=== PATIENT | male | born 1965 | race Caucasian/White ===

== ENCOUNTER → 2017-09-26 | Outpatient (CLI) | payer MEDICARE, MEDICAID ==
[2016-10-20 08:25] VITALS: BMI 27.1
[~2017-09-26] MED LIST: ACET-1966 PO; ACET-2043 PO; ADAL40PE4 SQ; ALEN70TA2 PO; BACOUD TP; CALC-597 PO; CALC1TAB24 PO; CETY454C2 TP; CHOL500045 PO; CIPR3.5O4 OP; CITA-139 PO; CLOB15CR22 TP; Cefdinir PO; DIAZ-308 PO; DOXY-179 PO; ENOX40DI8 SC; FERR240T18 PO; FLUT16SP20 NS; FOLI-68 PO; GUAI-244 PO; HYDR25CA83 PO; HYDR28.415 TP; IBAN150T3 PO; IBUP400T13 PO; LOPE-84 PO; LORA-1456 PO; LORA-629 PO; LORA10CA3 PO; MAG-66 PO; MENT118G; METH-318 PO; METH2.5T43 PO; MULT1TAB64 PO; NAPR220T86 PO; OLAN5TAB25 PO; OMEP-125 PO; PIMT TP; SIMV10TA98 PO; SODI30SP6 NS; TAMS0.4C70 PO; [UNRECOGNIZED DRUG - CODE] MC
--- NOTE | 2017-09-26 18:00 | RADIOLOGY IMAGING REPORT ---
[place] [facility] [place] NAME: Jose D Moy : 1965 MR: [id number] V: [id number] EXAM DATE: ORDERING PHYSICIAN: ERIKA MICHAUD TECHNOLOGIST: Location: [facility] [place] Patient: Jose D Moy : 1965 Visit/Account:[id number] Date of Sevice: 09/26/2017 CHEST PA AND LAT INDICATION: Encounter for therapeutic drug monitoring COMPARISON: November 01, 2016 FINDINGS: The cardiac silhouette is normal in size. Convexity right thoracic scoliosis as before. No pneumothor ax. Clear lungs. No pleural fluid. Thoracic kyphosis noted on lateral view. No acute osseous abnormal ity. Chronic right fifth and sixth rib fracture deformities are either new or better visualized on cu rrent exam. IMPRESSION: 1. No acute finding. 2. Chronic right fifth and sixth rib fracture deformities are either new or better visualized on this exam. 3. Unchanged thoracic scoliosis.. Report Dictated By: Nael Babin MD at 09/26/2017 5:53 PM Report E-Signed By: Nael Babin MD at 09/26/2017 5:55 PM WSN:[id number]
== END ==
LOC: RAD 15:34
PROVIDERS: ATTEND Family Medicine
DX: Z51.81 Encounter for therapeutic drug level monitoring (principal); S22.41XA Multiple fractures of ribs, right side, initial encounter for closed fracture; M41.84 Other forms of scoliosis, thoracic region
CPT/HCPCS: 71046

== ENCOUNTER → 2017-11-23 | Outpatient (REF) | payer MEDICARE ==
[2016-10-20 08:25] VITALS: BMI 27.1
== END ==
LOC: ZZLCC 17:03
PROVIDERS: ATTEND Family Medicine
DX: Z79.899 Other long term (current) drug therapy (principal)
CPT/HCPCS: 82040; 82247; 82248; 82310; 82374; 82435; 82565; 82947; 84075; 84100; 84132; 84155; 84295; 84450; 84460; 84520; 85027

== ENCOUNTER → 2017-12-25 | Outpatient (REF) | payer MEDICARE ==
[2016-10-20 08:25] VITALS: BMI 27.1
== END ==
LOC: ZZLCC 15:23
PROVIDERS: ATTEND Family Medicine
DX: Z51.81 Encounter for therapeutic drug level monitoring (principal)
CPT/HCPCS: 85027

== ENCOUNTER → 2018-01-06 | Outpatient (REF) | payer MEDICARE, MEDICAID ==
[2016-10-20 08:25] VITALS: BMI 27.1
[~2018-01-06] MED LIST changes: -CITA-139 PO; +CITA-145 PO
== END ==
LOC: ZZSENDIN 13:40
PROVIDERS: ATTEND Family Medicine
DX: D64.9 Anemia, unspecified (principal); Z79.899 Other long term (current) drug therapy
CPT/HCPCS: 83540; 83550

== ENCOUNTER → 2018-01-22 | Outpatient (REF) | payer MEDICARE, MEDICAID ==
[2016-10-20 08:25] VITALS: BMI 27.1
== END ==
LOC: ZZLCC 10:47
PROVIDERS: ATTEND Family Medicine
DX: M54.5 Low back pain (principal); R10.9 Unspecified abdominal pain; D64.9 Anemia, unspecified; D50.9 Iron deficiency anemia, unspecified
CPT/HCPCS: 81001

== ENCOUNTER → 2018-01-23 | Outpatient (REF) | payer MEDICARE, MEDICAID ==
[2016-10-20 08:25] VITALS: BMI 27.1
== END ==
LOC: ZZLCC 05:45
PROVIDERS: ATTEND Family Medicine
DX: R34 Anuria and oliguria (principal); M06.9 Rheumatoid arthritis, unspecified
CPT/HCPCS: 82040; 82247; 82248; 82310; 82374; 82435; 82565; 82947; 84075; 84100; 84132; 84155; 84295; 84450; 84460; 84520; 85027

== ENCOUNTER → 2018-02-22 | Outpatient (REF) | payer MEDICARE, MEDICAID ==
[2016-10-20 08:25] VITALS: BMI 27.1
== END ==
LOC: ZZLCC 10:54
PROVIDERS: ATTEND Family Medicine
DX: R62.7 Adult failure to thrive (principal); D50.9 Iron deficiency anemia, unspecified; R13.12 Dysphagia, oropharyngeal phase; B37.89 Other sites of candidiasis; E86.0 Dehydration; F33.9 Major depressive disorder, recurrent, unspecified; F39 Unspecified mood [affective] disorder; F79 Unspecified intellectual disabilities; J15.9 Unspecified bacterial pneumonia; M06.9 Rheumatoid arthritis, unspecified; M25.551 Pain in right hip; M25.552 Pain in left hip; M62.81 Muscle weakness (generalized); N39.0 Urinary tract infection, site not specified; R26.2 Difficulty in walking, not elsewhere classified; R33.9 Retention of urine, unspecified; R34 Anuria and oliguria; R41.841 Cognitive communication deficit; R53.1 Weakness; R60.0 Localized edema; Z96.641 Presence of right artificial hip joint
CPT/HCPCS: 85027

== ENCOUNTER → 2018-03-27 | Outpatient (REF) | payer MEDICARE, MEDICAID ==
[2016-10-20 08:25] VITALS: BMI 27.1
== END ==
LOC: ZZLCC 07:02
PROVIDERS: ATTEND Family Medicine
DX: Z79.899 Other long term (current) drug therapy (principal)
CPT/HCPCS: 82040; 82247; 82248; 82310; 82374; 82435; 82565; 82947; 84075; 84100; 84132; 84155; 84295; 84450; 84460; 84520; 85027

== ENCOUNTER → 2018-04-26 | Outpatient (REF) | payer MEDICARE, MEDICAID ==
[2016-10-20 08:25] VITALS: BMI 27.1
== END ==
LOC: ZZLCC 18:20
PROVIDERS: ATTEND Family Medicine
DX: Z79.899 Other long term (current) drug therapy (principal)
CPT/HCPCS: 85027

== ENCOUNTER → 2018-05-16 | Outpatient (REF) | payer MEDICARE, MEDICAID ==
[2016-10-20 08:25] VITALS: BMI 27.1
== END ==
LOC: ZZLCC 16:50
PROVIDERS: ATTEND Family Medicine
DX: K59.00 Constipation, unspecified (principal); R50.9 Fever, unspecified; R11.2 Nausea with vomiting, unspecified
CPT/HCPCS: 81001; 82040; 82247; 82310; 82374; 82435; 82565; 82947; 84075; 84132; 84155; 84295; 84450; 84460; 84520; 85027

== ENCOUNTER → 2018-06-24 | Outpatient (REF) | payer MEDICARE, MEDICAID ==
[2016-10-20 08:25] VITALS: BMI 27.1
== END ==
LOC: ZZLCC 10:58
PROVIDERS: ATTEND Family Medicine
DX: Z79.899 Other long term (current) drug therapy (principal)
CPT/HCPCS: 85027

== ENCOUNTER → 2018-07-02 | Outpatient (REF) | payer MEDICARE, MEDICAID ==
[2016-10-20 08:25] VITALS: BMI 27.1
== END ==
LOC: ZZLCC 20:45
PROVIDERS: ATTEND Family Medicine
DX: Z51.81 Encounter for therapeutic drug level monitoring (principal); Z79.899 Other long term (current) drug therapy
CPT/HCPCS: 85027

== ENCOUNTER → 2018-07-25 | Outpatient (REF) | payer MEDICARE, MEDICAID ==
[2016-10-20 08:25] VITALS: BMI 27.1
== END ==
LOC: ZZLCC 17:22
PROVIDERS: ATTEND Family Medicine
DX: Z51.81 Encounter for therapeutic drug level monitoring (principal); Z79.899 Other long term (current) drug therapy

== ENCOUNTER → 2018-07-26 | Outpatient (REF) | payer MEDICARE, MEDICAID ==
[2016-10-20 08:25] VITALS: BMI 27.1
== END ==
LOC: ZZLCC 07:24
PROVIDERS: ATTEND Family Medicine
DX: Z51.81 Encounter for therapeutic drug level monitoring (principal); Z79.899 Other long term (current) drug therapy
CPT/HCPCS: 82040; 82247; 82248; 84075; 84155; 84450; 84460; 85027

== ENCOUNTER → 2018-08-01 | Outpatient (REF) | payer MEDICARE, MEDICAID ==
[2016-10-20 08:25] VITALS: BMI 27.1
[2018-08-01 12:08] LABS: PLATELET COUNT, AUTOMATED 179 K/uL (150-450)
== END ==
LOC: ZZLCC 11:51
PROVIDERS: ATTEND Family Medicine
DX: D72.828 Other elevated white blood cell count (principal)
CPT/HCPCS: 85025; 86140

== ENCOUNTER → 2018-08-05 | Outpatient (REF) | payer MEDICARE, MEDICAID ==
[2016-10-20 08:25] VITALS: BMI 27.1
== END ==
LOC: ZZLCC 07:46
PROVIDERS: ATTEND Family Medicine
DX: Z51.81 Encounter for therapeutic drug level monitoring (principal); Z79.899 Other long term (current) drug therapy
CPT/HCPCS: 82040; 82247; 82248; 82310; 82374; 82435; 82565; 82947; 84075; 84100; 84132; 84155; 84295; 84450; 84460; 84520

== ENCOUNTER → 2018-08-25 | Outpatient (REF) | payer MEDICARE, MEDICAID ==
[2016-10-20 08:25] VITALS: BMI 27.1
== END ==
LOC: ZZLCC 07:44
PROVIDERS: ATTEND Family Medicine
DX: Z79.899 Other long term (current) drug therapy (principal)

== ENCOUNTER → 2018-09-26 | Outpatient (REF) | payer MEDICARE, MEDICAID ==
[2016-10-20 08:25] VITALS: BMI 27.1
[~2018-09-26] MED LIST changes: -ALEN70TA2 PO; +ALEN70TA46 PO
== END ==
LOC: ZZLCC 18:18
PROVIDERS: ATTEND Family Medicine
DX: D72.829 Elevated white blood cell count, unspecified (principal); Z79.899 Other long term (current) drug therapy

== ENCOUNTER → 2018-09-30 | Outpatient (REF) | payer MEDICARE, MEDICAID ==
[2016-10-20 08:25] VITALS: BMI 27.1
== END ==
LOC: ZZLCC 16:55
PROVIDERS: ATTEND Family Medicine
DX: D72.829 Elevated white blood cell count, unspecified (principal)
CPT/HCPCS: 82040; 82247; 82248; 82310; 82374; 82435; 82565; 82947; 84075; 84100; 84132; 84155; 84295; 84450; 84460; 84520; 85027

== ENCOUNTER → 2018-11-28 | Outpatient (REF) | payer MEDICARE, MEDICAID ==
[2016-10-20 08:25] VITALS: BMI 27.1
== END ==
LOC: ZZLCC 14:47
PROVIDERS: ATTEND Family Medicine
DX: D50.9 Iron deficiency anemia, unspecified (principal)
CPT/HCPCS: 83540

== ENCOUNTER → 2018-12-23 | Outpatient (REF) | payer MEDICARE, MEDICAID ==
[2016-10-20 08:25] VITALS: BMI 27.1
== END ==
LOC: ZZLCC 16:53
PROVIDERS: ATTEND Family Medicine
DX: Z79.899 Other long term (current) drug therapy (principal)
CPT/HCPCS: 82040; 82247; 82248; 82310; 82374; 82435; 82565; 82947; 84075; 84100; 84132; 84155; 84295; 84450; 84460; 84520; 85025; 85027

== ENCOUNTER → 2019-01-28 | Outpatient (REF) | payer MEDICARE, MEDICAID ==
[2016-10-20 08:25] VITALS: BMI 27.1
[~2019-01-28] MED LIST changes: -OMEP-125 PO; +OMEP-126 PO
== END ==
LOC: ZZLCC 13:03
PROVIDERS: ATTEND Family Medicine
DX: Z79.899 Other long term (current) drug therapy (principal)
CPT/HCPCS: 82040; 82247; 82248; 82310; 82374; 82435; 82565; 82947; 84075; 84100; 84132; 84155; 84295; 84450; 84460; 84520; 85027

== ENCOUNTER → 2019-02-24 | Outpatient (REF) | payer MEDICARE, MEDICAID ==
[2016-10-20 08:25] VITALS: BMI 27.1
== END ==
LOC: ZZLCC 18:35
PROVIDERS: ATTEND Family Medicine
DX: Z79.899 Other long term (current) drug therapy (principal)
CPT/HCPCS: 82040; 82247; 82248; 82310; 82374; 82435; 82565; 82947; 84075; 84100; 84132; 84155; 84295; 84450; 84460; 84520; 85027

== ENCOUNTER → 2019-03-25 | Outpatient (REF) | payer MEDICARE, MEDICAID ==
[2016-10-20 08:25] VITALS: BMI 27.1
== END ==
LOC: ZZLCC 15:08
PROVIDERS: ATTEND Family Medicine
DX: Z79.899 Other long term (current) drug therapy (principal)
CPT/HCPCS: 82040; 82247; 82248; 84075; 84155; 84450; 84460; 85027